=== PATIENT | male | born 1945 | race Caucasian/White ===

== ENCOUNTER → 2016-05-28 | Outpatient (CLI) | payer MEDICARE, BC ==
[~2016-05-28] MED LIST: AMOXICILLIN 8751 TAB PO; CARDIZEM CD 24240 MG PO; COZAAR 50MG50 MG/TAB PO; COZAAR100 MG PO; LASIX 20MG TABL20 MG PO; LIPITOR 80MG80 MG PO; MULTIPLE VITAMI1 CAP PO; NORCO 325 MG-7.1 TAB PO; NORVASC 10MG10 MG PO; PRADAXA 150MG150 MG PO; PROAIR HFA0.09 MG/AC IH; TAMBOCOR 1100 MG/TAB PO; TENORMIN100 MG PO; ZYLOPRIM 100MG100 MG PO
== END ==
LOC: COL.RAD 07:03
DX: M25.78 Osteophyte, vertebrae (principal); M54.5 Low back pain; R10.30 Lower abdominal pain, unspecified

== ENCOUNTER → 2016-06-29 | Outpatient (CLI) | payer MEDICARE, BC | LOC: MHCPAIN 11:08 | DX: G89.29 Other chronic pain (principal); M47.817 Spondylosis without myelopathy or radiculopathy, lumbosacral region; M54.16 Radiculopathy, lumbar region; M53.3 Sacrococcygeal disorders, not elsewhere classified; F17.228 Nicotine dependence, chewing tobacco, with other nicotine-induced disorders | CPT/HCPCS: G0463 ==

== ENCOUNTER → 2016-07-05 | Outpatient (CLI) | payer MEDICARE, BC | LOC: MHCPAIN 10:46 | DX: M47.817 Spondylosis without myelopathy or radiculopathy, lumbosacral region (principal); M53.3 Sacrococcygeal disorders, not elsewhere classified | CPT/HCPCS: G0260; J1040; Q9967 ==

== ENCOUNTER → 2016-08-08 | Outpatient (CLI) | payer MEDICARE, BC | LOC: MHCPAIN 11:49 | DX: G89.29 Other chronic pain (principal); M47.817 Spondylosis without myelopathy or radiculopathy, lumbosacral region; M53.3 Sacrococcygeal disorders, not elsewhere classified; F17.200 Nicotine dependence, unspecified, uncomplicated | CPT/HCPCS: G0463 ==

== ENCOUNTER → 2016-11-07 | Outpatient (CLI) | payer MEDICARE, BC | LOC: MHCPAIN 12:28 | DX: G89.29 Other chronic pain (principal); M47.817 Spondylosis without myelopathy or radiculopathy, lumbosacral region; M53.3 Sacrococcygeal disorders, not elsewhere classified; M25.50 Pain in unspecified joint | CPT/HCPCS: G0463 ==

== ENCOUNTER → 2017-03-05 | Outpatient (CLI) | payer MEDICARE, BC | LOC: MHCPAIN 13:40 | DX: G89.29 Other chronic pain (principal); M47.817 Spondylosis without myelopathy or radiculopathy, lumbosacral region; M53.3 Sacrococcygeal disorders, not elsewhere classified; F17.220 Nicotine dependence, chewing tobacco, uncomplicated | CPT/HCPCS: G0463 ==

== ENCOUNTER → 2017-04-04 | Outpatient (CLI) | payer MEDICARE, BC | LOC: MHCPAIN 11:46 | DX: M47.817 Spondylosis without myelopathy or radiculopathy, lumbosacral region (principal); M53.3 Sacrococcygeal disorders, not elsewhere classified | CPT/HCPCS: G0260; J1040; Q9967 ==

== ENCOUNTER → 2017-05-29 | Outpatient (CLI) | payer MEDICARE, BC | LOC: COL.RAD 08:00 | DX: Z13.6 Encounter for screening for cardiovascular disorders (principal); Z82.49 Family history of ischemic heart disease and other diseases of the circulatory system; Z87.891 Personal history of nicotine dependence ==

== ENCOUNTER 2017-08-04 11:42 | Inpatient (IN) | payer MEDICARE, BC ==
[~2017-08-04] VITALS: Ht 182.9 cm; Wt 103.6 kg
[2017-08-04 12:45] VITALS: BP 145/63; TEMP 97.7
[2017-08-04 19:52] VITALS: BP 148/68; PULSE 51; TEMP 97.9
[2017-08-04] MEDS ORDERED: HCTZ 25MG TAB25 MG PO (21:14)
[2017-08-04] MEDS ORDERED: COREG12.5 MG PO (21:15)
[2017-08-04] MEDS ORDERED: ZOLOFT 50MG50 MG PO (21:16)
[2017-08-04] MEDS ORDERED: ASPIRIN 32325 MG/TAB PO (21:16)
[2017-08-04] MEDS ORDERED: KRILL OIL 3001 EACH PO (21:17)
[2017-08-04] MEDS ORDERED: THEO-24 20200 MG/CAP PO (21:17)
[2017-08-04] MEDS ORDERED: PRAVACHOL10 MG PO (21:18)
[2017-08-04] MEDS ORDERED: FLOMAX 0.40.4 MG/CAP PO (21:19)
[2017-08-04] MEDS ORDERED: LIORESAL 1010 MG/TAB PO (21:20)
[2017-08-04 23:15] VITALS: BP 151/63; PULSE 53; TEMP 97.2
[2017-08-05 04:02] VITALS: BP 158/68; PULSE 66; TEMP 98.2
[2017-08-05 07:08] LABS: BASO % 0.2 % (0.0-2.0); EOS # 0.1 (0.0-0.7); GRAN # 4.7 (1.4-6.5); GRAN % 71.5 % (42.2-75.2); LYMPH # 1.1 (1.2-3.4); LYMPH % 16.6 % (20.0-51.0); MEAN CELL VOLUME 96 fl (80.0-100.0); MEAN CORPUSCULAR HEMOGLOBIN 31 pg (27.0-31.0); MEAN CORPUSCULAR HGB CONC 33 g/dl (33.0-37.0); MEAN PLATELET VOLUME 10.2 fl (7.4-10.4); MONO # 0.6 (0.1-0.6); MONO % 9.4 % (1.7-9.3); PLATELET COUNT 160 K/mm3 (130-400); RED BLOOD COUNT 3.84 M/mm3 (4.20-5.60); REDCELL DISTRIBUTION WIDTH-CV 13.2 % (11.5-14.5)
[2017-08-05 07:21] VITALS: BP 156/68; PULSE 59; TEMP 98.6
[2017-08-05 07:24] LABS: CREATININE, serum 1.02 mg/dL (0.66-1.25); POTASSIUM 3.4 mmol/L (3.4-5.0)
[2017-08-05 07:28] LABS: HEMATOCRIT 36.9 % (42.0-52.0)
[2017-08-05 11:42] VITALS: BP 147/62; PULSE 58; TEMP 97.5
[2017-08-05 15:29] VITALS: BP 158/74; PULSE 60; TEMP 98
[2017-08-05 19:36] VITALS: BP 155/63; PULSE 62; TEMP 98.3
[2017-08-05 23:35] VITALS: BP 138/69; PULSE 63; TEMP 98.2
[2017-08-06 03:17] VITALS: BP 152/67; PULSE 62; TEMP 98.2
[2017-08-06 08:00] VITALS: BP 154/67; PULSE 64; TEMP 98.2
[2017-08-06 09:14] LABS: BASO % 0.3 % (0.0-2.0); EOS # 0.1 (0.0-0.7); EOS % 1.7 % (0-4.0); GRAN % 69.3 % (42.2-75.2); HEMOGLOBIN 11.8 g/dl (13.5-18.0); LYMPH # 1.1 (1.2-3.4); MEAN CELL VOLUME 94 fl (80.0-100.0); MEAN CORPUSCULAR HEMOGLOBIN 31 pg (27.0-31.0); MEAN CORPUSCULAR HGB CONC 33 g/dl (33.0-37.0); MEAN PLATELET VOLUME 9.5 fl (7.4-10.4); MONO # 0.6 (0.1-0.6); MONO % 9.4 % (1.7-9.3); PLATELET COUNT 162 K/mm3 (130-400); RED BLOOD COUNT 3.79 M/mm3 (4.20-5.60); REDCELL DISTRIBUTION WIDTH-CV 12.7 % (11.5-14.5)
[2017-08-06 09:16] LABS: HEMATOCRIT 35.7 % (42.0-52.0)
[2017-08-06 09:25] LABS: CALCIUM 8.4 mg/dL (8.4-10.2); POTASSIUM 3.4 mmol/L (3.4-5.0)
[2017-08-06 11:08] VITALS: BP 149/76; PULSE 65; TEMP 98.4
[2017-08-06 15:35] VITALS: BP 155/75; PULSE 59; TEMP 98.2
[2017-08-06 15:40] VITALS: BP 112/37; PULSE 88; TEMP 98.1
[2017-08-06 19:49] VITALS: BP 156/64; PULSE 64; TEMP 98.2
[2017-08-07 00:13] VITALS: BP 140/64; PULSE 60; TEMP 98.7
[2017-08-07 04:20] VITALS: BP 172/68; PULSE 60; TEMP 98.7
[2017-08-07 06:34] LABS: BASO % 0.2 % (0.0-2.0); EOS # 0.1 (0.0-0.7); EOS % 1.8 % (0-4.0); GRAN # 3.2 (1.4-6.5); GRAN % 63.2 % (42.2-75.2); HEMOGLOBIN 11.5 g/dl (13.5-18.0); LYMPH # 1.2 (1.2-3.4); LYMPH % 23.8 % (20.0-51.0); MEAN CELL VOLUME 95 fl (80.0-100.0); MEAN CORPUSCULAR HEMOGLOBIN 31 pg (27.0-31.0); MEAN CORPUSCULAR HGB CONC 33 g/dl (33.0-37.0); MEAN PLATELET VOLUME 10.2 fl (7.4-10.4); MONO # 0.5 (0.1-0.6); MONO % 10.8 % (1.7-9.3); PLATELET COUNT 165 K/mm3 (130-400); RED BLOOD COUNT 3.73 M/mm3 (4.20-5.60); REDCELL DISTRIBUTION WIDTH-CV 12.4 % (11.5-14.5)
[2017-08-07 06:38] LABS: HEMATOCRIT 35.3 % (42.0-52.0)
[2017-08-07 06:53] LABS: CALCIUM 8.5 mg/dL (8.4-10.2); CREATININE, serum 0.91 mg/dL (0.66-1.25); POTASSIUM 3.5 mmol/L (3.4-5.0)
[2017-08-07 07:36] VITALS: BP 171/70; PULSE 59; TEMP 98.2
[2017-08-07 09:20] LABS: MUCOUS Present /lpf; PH 6 (5-8); SQUAMOUS EPITHELIAL None Seen /hpf; URINE APPEARANCE Clear; URINE BACTERIA None Seen /hpf; URINE BILIRUBIN Negative (NEGATIVE); URINE BLOOD Negative (NEGATIVE); URINE COLOR Yellow; URINE GLUCOSE Negative (NEGATIVE); URINE KETONE 1+ (NEGATIVE); URINE LEUKOCYTE ESTERASE Negative (NEGATIVE); URINE NITRATE Negative (NEGATIVE); URINE PROTEIN(semi-quant) Negative (NEGATIVE); URINE RBC 0-2 /hpf; URINE UROBILINOGEN >=4.0 mg/dL (NEGATIVE)
[2017-08-07 09:56] LABS: COLLECTION METHOD CLEAN CATCH
[2017-08-07 12:19] VITALS: BP 136/74; PULSE 57; TEMP 97.9
== END 2017-08-07 16:20 | disposition home or self-care (01) | DRG 389 ==
LOC: SURG 11:42
PROVIDERS: Internal Medicine Pulmonary Disease; Physician Assistant; Surgery
DX: K56.600 Partial intestinal obstruction, unspecified as to cause (principal); I50.32 Chronic diastolic (congestive) heart failure; I11.0 Hypertensive heart disease with heart failure; I48.91 Unspecified atrial fibrillation; J44.9 Chronic obstructive pulmonary disease, unspecified; I25.10 Atherosclerotic heart disease of native coronary artery without angina pectoris; Z79.01 Long term (current) use of anticoagulants; Z87.891 Personal history of nicotine dependence; N32.89 Other specified disorders of bladder
CPT/HCPCS: 99222-AI; 99231-AI; 99232-AI; 99239; J1650; J2405; J7120; Q9967

== ENCOUNTER → 2019-01-12 | Outpatient (CLI) | payer MEDICARE, BC ==
[~2019-01-12] MED LIST changes: +ASPIRIN 32325 MG/TAB PO; +COREG12.5 MG PO; +FLOMAX 0.40.4 MG/CAP PO; +HCTZ 25MG TAB25 MG PO; +KRILL OIL 3001 EACH PO; +LIORESAL 1010 MG/TAB PO; +PRAVACHOL10 MG PO; +THEO-24 20200 MG/CAP PO; +ZOLOFT 50MG50 MG PO
== END ==
LOC: MHCPAIN 10:53
DX: M47.817 Spondylosis without myelopathy or radiculopathy, lumbosacral region (principal); M54.16 Radiculopathy, lumbar region
CPT/HCPCS: G0463

== ENCOUNTER → 2019-01-29 | Outpatient (CLI) | payer MEDICARE, BC | LOC: MHCPAIN 12:55 | DX: M47.27 Other spondylosis with radiculopathy, lumbosacral region (principal) | CPT/HCPCS: J1100; Q9967 ==

== ENCOUNTER → 2019-02-25 | Outpatient (CLI) | payer MEDICARE, BC | LOC: MHCPAIN 13:03 | DX: M47.817 Spondylosis without myelopathy or radiculopathy, lumbosacral region (principal); M54.16 Radiculopathy, lumbar region | CPT/HCPCS: G0463 ==

== ENCOUNTER → 2019-03-12 | Outpatient (CLI) | payer MEDICARE, BC | LOC: MHCPAIN 12:22 | DX: M48.07 Spinal stenosis, lumbosacral region (principal); M54.17 Radiculopathy, lumbosacral region | CPT/HCPCS: J1100; Q9967 ==

== ENCOUNTER → 2019-03-24 | Outpatient (CLI) | payer MEDICARE, BC | LOC: MHCPAIN 12:48 | DX: M53.3 Sacrococcygeal disorders, not elsewhere classified (principal); M54.16 Radiculopathy, lumbar region; G89.29 Other chronic pain | CPT/HCPCS: G0463 ==

== ENCOUNTER → 2021-09-22 | Outpatient (CLI) | payer MEDICARE, BC | LOC: COL.RAD 09:45 | DX: C61 Malignant neoplasm of prostate (principal) | CPT/HCPCS: A9503 ==

== ENCOUNTER → 2022-12-06 | Outpatient (CLI) | payer MEDICARE | LOC: COL.CARD 07:28 | DX: R06.02 Shortness of breath (principal) ==

== ENCOUNTER 2023-11-06 09:01 | Outpatient (RCR) | payer MEDICARE, BC ==
[~2023-11-06] VITALS: Ht 182.9 cm; Wt 124.5 kg
[2023-11-06] VITALS (9 sets, daily range): BP systolic 156–178; BP diastolic 77–97; PULSE 53–60; TEMP 97.6–98.7
[2023-11-06] MEDS ORDERED: NS 250 ML IV SCH (10:15)
[2023-11-06] MEDS ORDERED: diphenhydrAMINE 25 MG CAP PO SCH (10:15)
[2023-11-06] MEDS ORDERED: Acetaminophen 325 MG TAB PO SCH (10:15)
[2023-11-06] MEDS ORDERED: PROAIR HFA0.09 MG/AC IH (13:23)
[2023-11-06] MEDS ORDERED: CARDIZEM CD 12120 MG PO (13:24)
[2023-11-06] MEDS ORDERED: CALCIUM 600MG+D1 TAB PO (13:26)
[2023-11-06] MEDS ORDERED: LUPRON5 MG/M2 INJ (13:29)
[2023-11-06] MEDS ORDERED: PRILOSEC 20MG20 MG PO (13:30)
[2023-11-06] MEDS ORDERED: MOBIC 7.5MG7.5 MG PO (13:30)
[2023-11-06] MEDS ORDERED: ALDACTONE 25MG25 M1 PO (13:31)
--- NOTE | 2023-11-06 16:32 | NUR ---
Pt discharged via ambulatory.
[2023-11-13] MEDS ORDERED: VENTOLIN0.09 MG IH (08:39)
[2023-11-13] MEDS ORDERED: ZYLOPRIM 300MG300 MG PO (08:40)
[2023-11-13] MEDS ORDERED: TAMBOCOR50 MG PO (08:41)
[2023-11-13] MEDS ORDERED: CALCIUM 600600 MG PO (08:41)
[2023-11-13] MEDS ORDERED: KRILL OIL 5001 EACH PO (08:42)
[2023-11-13] MEDS ORDERED: HCTZ 25MG TAB25 MG PO (08:42)
== END 2023-11-06 16:32 ==
LOC: EUO 09:01
DX: D61.818 Other pancytopenia (principal)
CPT/HCPCS: J7050; P9016

== ENCOUNTER → 2023-11-13 | Outpatient (CLI) | payer MEDICARE, BC ==
[2023-11-13] VITALS (9 sets, daily range): BP systolic 142–188; BP diastolic 68–111; PULSE 54–69; TEMP 97.6
[~2023-11-13] VITALS: Ht 182.9 cm; Wt 122.6 kg
[~2023-11-13] MED LIST changes: +ALDACTONE 25MG25 M1 PO; +CALCIUM 600600 MG PO; +CALCIUM 600MG+D1 TAB PO; +CARDIZEM CD 12120 MG PO; +KRILL OIL 5001 EACH PO; +LUPRON5 MG/M2 INJ; +MOBIC 7.5MG7.5 MG PO; +PRILOSEC 20MG20 MG PO; +TAMBOCOR50 MG PO; +VENTOLIN0.09 MG IH; +ZYLOPRIM 300MG300 MG PO
[2023-11-13 09:31] LABS: MEAN CELL VOLUME 93 fl (80.0-100.0); MEAN CORPUSCULAR HGB CONC 34 g/dl (33.0-37.0); MEAN PLATELET VOLUME 9.5 fl (7.4-10.4); PLATELET COUNT 83 K/mm3 (130-400); RED BLOOD COUNT 3.07 M/mm3 (4.20-5.60); REDCELL DISTRIBUTION WIDTH-CV 16.1 % (11.5-14.5)
[2023-11-13 09:33] LABS: HEMATOCRIT 28.5 % (42.0-52.0); HEMOGLOBIN 9.6 g/dl (13.5-18.0); MEAN CORPUSCULAR HEMOGLOBIN 31 pg (27-31)
--- NOTE | 2023-11-13 09:33 | NUR ---
pt placed on ct table in prone position. Monitors applied. O2 on at 2l/nc.
--- NOTE | 2023-11-13 09:46 | NUR ---
Time out performed with Chloe Simi cigar inspector and Dr Song.
--- NOTE | 2023-11-13 09:54 | NUR ---
Specimens obtained by Dr Song and given to lab nidia.
[2023-11-13 10:31] LABS: ANISOCYTOSIS 1+; EOSINOPHIL 1 % (0-4); LYMPHOCYTE 24 % (20.0-51.0); NEUTROPHILS 65 % (42.0-75.2); PLATELET ESTIMATE DECREASED (NORMAL)
== END ==
LOC: COL.RAD 08:06
PROVIDERS: Radiology Diagnostic Radiology
DX: D61.818 Other pancytopenia (principal)

== ENCOUNTER → 2023-11-27 | Outpatient (REF) | payer MEDICARE, BC ==
[2023-11-27 22:17] LABS: BAND 2 % (0-10); LYMPHOCYTE 38 % (20.0-51.0); NEUTROPHILS 54 % (42.0-75.2)
[2023-11-27 22:18] LABS: ANISOCYTOSIS 2+; HYPOCHROMIA 2+; POLYCHROMASIA 1+
[2023-11-27 22:19] LABS: PLATELET ESTIMATE DECREASED (NORMAL)
== END ==
LOC: ZCOL.LAB 19:54
PROVIDERS: Family Medicine
DX: D61.818 Other pancytopenia (principal)

== ENCOUNTER → 2023-12-13 | Outpatient (CLI) | payer MEDICARE, BC ==
[2023-12-13 20:35] LABS: EOSINOPHIL 2 % (0-4); LYMPHOCYTE 31 % (20.0-51.0); NEUTROPHILS 57 % (42.0-75.2)
[2023-12-13 20:36] LABS: ANISOCYTOSIS 1+; POLYCHROMASIA 1+
== END ==
LOC: COL.LAB 11:49
PROVIDERS: Family Medicine
DX: C88.00 Waldenstrom macroglobulinemia not having achieved remission (principal)